=== PATIENT | female | born 1950 | race Native Hawaiian/Other Pacific Islander ===

== ENCOUNTER → 2016-11-19 | Outpatient (CLI) | payer MEDICARE, OTHER ==
--- NOTE | 2016-11-19 14:12 | MRI ---
EXAM DESCRIPTION: MR LUMBAR SPINE WITHOUT IV CONTRAST CLINICAL HISTORY: 66 y/o F, RADICULOPATHY COMPARISON: None TECHNIQUE: Multiplanar multi sequence images of the lumbar spine were obtained without gadolinium contrast. FINDINGS: There is slight grade 1 anterolisthesis at L3-4 period vertebral body height and alignment are otherwise well maintained period No bone marrow signal abnormalities are noted. The conus lies posterior to the L1 body, and the cauda equina is unremarkable. There is a lobulated infrarenal abdominal aortic aneurysm measuring up to 3.2 cm diameter period fatty atrophy of the paraspinal muscles is noted. There is disc desiccation throughout the lower thoracic and lumbar spine period At L1-2,there is bilateral facet joint degeneration and ligamentum flavum thickening with minimal concentric disc bulging. Findings result in mild to moderate bilateral neural foraminal stenosis and minimal central canal stenosis. An osteophyte arising from the anterior aspect of the right L1-2 facet results in mass effect on the thecal sac and possible abutment of the cauda equina period At L2-3, there is bilateral facet joint degeneration with ligamentum flavum thickening and slight concentric disc bulging resulting in mild to moderate bilateral neural foraminal and mild central canal stenosis. No definite nerve root abutment. At L3-4, there is bilateral facet joint degeneration with ligamentum flavum thickening period minimal, if any, concentric disc bulging, and findings result in mild to moderate central canal and mild bilateral neural foraminal stenosis. No definite nerve root abutment period At L4-5, there is concentric disc bulging, worse in the left foraminal and left lateral positions. Bilateral facet joint degeneration is noted, and findings result in advanced left-sided and moderate right-sided neural foraminal stenosis. Disc material approaches and likely abuts the exiting left L4 nerve root. At L5-S1, there is bilateral facet joint degeneration with mild right lateral disc bulging period no central canal or neural foraminal stenosis. IMPRESSION: Disc bulging, facet joint degeneration and ligamentum flavum thickening at multiple levels in the lumbar spine resulting in central canal central canal and neural foraminal stenosis as detailed above. Findings include possible nerve root abutment at L1-2 and L4-5. 3.2 cm infrarenal abdominal aortic aneurysm. AAA Size: Follow-upRecommendation1: 2.6-2.9 cm Every 5 years2 3.0-3.4 cm Every 3 years 3.5-3.9 cm Every 1 year 4.0-4.4 cm Every 1 year, vascularconsultation recommended 4.5-5.4 cm Every 6 months,vascular consultation recommended >5.5cm Vascularsurgery consultation recommended 1. J Vasc Surg. 2009Oct;50(4 Suppl):S2-49 2. For aortas with maximum diameter of 2.6-2.9 cmmeeting the criteria for AAA (>50% of proximal normal segment) Electronically signed by: Christiano Hummel DO 11/19/2016 14:10
== END ==
LOC: MRI 12:43
PROVIDERS: ATTEND Psychiatry & Neurology Neurology
DX: M51.16 Intervertebral disc disorders with radiculopathy, lumbar region (principal); G60.3 Idiopathic progressive neuropathy; I71.4 Abdominal aortic aneurysm, without rupture

== ENCOUNTER → 2017-11-23 | Outpatient (CLI) | payer MEDICARE, OTHER ==
--- NOTE | 2017-11-23 17:07 | CT ---
EXAM DESCRIPTION: Abdomen/Pelvis w/wo Contrast EXAM DESCRIPTION: Abdomen/Pelvis w/wo Contrast: Computed Tomography. CLINICAL HISTORY: HEMATURIA COMPARISON: CT scan of the chest with contrast on this visit. TECHNIQUE: Spiral-axial scans at 5.0 mm intervals through the abdomen and pelvis before and after standard dose nonionic IV contrast. No oral contrast. Coronal and sagittal 2.0 mm reconstructions. No adverse reactions. Total Exam DLP 2426.3 mGy - cm. This exam was performed according to our departmental CT dose-optimization program which includes automated exposure control, adjustment of the mA and/or kV according to patient size and/or use of iterative reconstruction technique; to reduce radiation dose to as low as reasonably achievable (ALARA). FINDINGS: Kidneys and Ureters: No radiodense stones bilaterally. No hydronephrosis or hydroureter. No perinephric fluid or periureteral edema. Pelvic Organs: Urinary bladder minimally distended with no radiodense stones. No diverticula. Uterus is not retroverted. Bilateral ovaries are visualized with no calcifications. No fluid in the cul-de-sac. Liver, Stomach, Spleen, Adrenal Glands: Diffuse low-density in the liver. Craniocaudal axis of the right lobe is 21.2 cm. No ascites. Normal enhancement. No intrahepatic duct dilation. Small fatty nodule on the inferior aspect of the left adrenal gland. Right adrenal gland spleen and stomach are unremarkable. Pancreas, Gallbladder, Ducts: Small folds seen in the anterior inferior gallbladder fundus. Pancreas and common bile duct unremarkable. Aorta: Minimal atherosclerotic calcification until the bifurcation. Dilation of distal 3.3 cm, with widest dimension 3.0 cm transverse and 2.9 cm craniocaudal. Small Bowel: Normal caliber. Proximal ileum enters a midline supraumbilical hernia (9 cm above the umbilicus) but there is no incarceration dilation or obstruction. No edema around the loop of bowel. Terminal Ileum/Cecum: Normal caliber. Small appendiceal stump. Normal fatty density. Colon: Contains fecal matter. A loop of transverse colon enters the previously described hernia and exits with no distention abnormal appearance. Minimal redundancy of the sigmoid colon with small diverticula but no complications. Mesentery: No edema free fluid or free air. Spine and Bony Pelvis: Spondylosis at L4-5 is moderate to significant bilateral foraminal narrowing. Mild disc desiccation spondylosis L5-S1 with bilateral foraminal narrowing. Also seen at L3-4. Spondylosis at multiple levels in the thoracic spine. No compression abnormalities. No bone destruction. Bilateral hypertrophy of the superior lateral acetabulum with narrowing of the bilateral hip joint spaces and over coverage of the femoral heads. Minimal gas density in the bilateral SI joint spaces. Abdominal Wall/Back Soft Tissues: Transverse neck of the midline hernia containing a loop of bowel loop of colon is 7 cm. Craniocaudal axis is 5.2 cm. No mesenteric or fatty edema in the hernia. Hernia just above the umbilicus measures 2.6 cm transverse and 2.7 cm craniocaudal. No bowel in the hernia; no mesenteric or fatty edema in the hernia. Bilateral fatty inguinal hernias, not containing bowel. IMPRESSION: 1. Bilateral kidneys ureters are unremarkable with no stones or obstruction. 2. Midline abdominal hernia 9 cm above the umbilicus containing a loop of ileum in the loop of transverse colon but no incarceration strangulation or obstruction. Second hernia abutting the superior umbilicus without bowel. No mesenteric edema. 3. Moderate hepatomegaly with steatosis. This can be result of obesity and a variety of metabolic and toxic conditions. Spondylosis in the lumbar and thoracic spine. Most severe at L4-5 level with significant bilateral foraminal compromise. 4. 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 Electronically signed by: Jose Gonzalez MD 11/23/2017 5:05 PM MEDICAL INSURANCE CLAIMS PROCESSOR
--- NOTE | 2017-11-23 20:25 | CT ---
EXAM DESCRIPTION: Chest w/Contrast : Computed Tomography. CLINICAL HISTORY: ABNORMAL CXR COMPARISON: CT abdomen and pelvis on the same visit. TECHNIQUE: Spiral-axial scans at 5.0 mm intervals through the lungs and thorax with IV contrast. 2.5 mm lung algorithm axial reconstructions. Coronal and sagittal 2.0 Mm reconstructions. No adverse reactions. Total Exam DLP: 834.32 mGy-cm. This exam was performed according to our departmental dose-optimization program which includes automated exposure control, adjustment of the mA and/or kV according to patient size and/or use of iterative reconstruction technique; to reduce radiation dose to as low as reasonably achievable (ALARA). FINDINGS: Soft tissue nodule in the inferior lateral lingula subpleural region with mean diameter 4.0 mm (series 3 image 62), abutting the inferior major fissure. Soft tissue nodule subpleural lateral left lower lobe. Mean diameter 5.5 mm (image 117). Minimal pleural thickening at the base but no effusion. No nodules in the right lung. Minimal scarring in the base. No infiltrate or mass bilaterally. Partial enhancement of the thyroid gland is unremarkable. No soft tissue masses or adenopathy in the mediastinum or hilar regions. No axillary adenopathy. Intimal wall thickening in the descending thoracic aorta. Multiple posterior ulcers on the lateral and posterior wall of the descending thoracic aorta, which extend into the regions of intimal wall thickening. Multiple levels of thoracic spondylosis with no compression or destructive lesions. Anterior cervical fusion construct anteriorly. IMPRESSION: 1. 2 nodules seen in the lingula and left lower lobe. The largest has a mean diameter of 5.5 mm. Consider follow-up chest CT scan in 12 month interval. Please see 2017 Fleischner Society recommendations for multiple solid lung nodule follow-up below.* 2. Multiple atherosclerotic luminal ulcers in the descending thoracic aorta with intimal wall thickening. Consider thoracic aorta CTA and cardiothoracic surgical consultation. *2017 Fleischner Society Recommendations for Multiple Solid Lung Nodules Follow-Up base on size (average of long- and short-axis diameters). Use most suspicious nodule for followup. Nodule Size <6 mm Low-Risk Patient: No routine follow-up Nodule Size <6 mm High-Risk Patient: Optional CT at 12 months Nodule Size 6-8 mm Low-Risk Patient: CT at 3-[address] at 18-24 months Nodule Size 6-8 mm High-Risk Patient: CT at 3-6 months then at 18-24 months Nodule Size (mm) >8 Low-Risk Patient: CT at 3-6 months, then consider CT at 18-24 months Nodule Size (mm) >8 High-Risk Patient: CT at 3-6 months, then at 18-24 months Electronically signed by: Jose Gonzalez MD 11/23/2017 8:24 PM [employer] -
== END | disposition home or self-care (01) ==
LOC: CT 10:00
PROVIDERS: ATTEND General Practice
DX: R31.9 Hematuria, unspecified (principal); R91.8 Other nonspecific abnormal finding of lung field

== ENCOUNTER → 2017-11-27 | Outpatient (CLI) | payer MEDICARE, OTHER ==
--- NOTE | 2017-11-27 15:05 | CT ---
EXAM DESCRIPTION: CTA Chest: Computed Tomography. CLINICAL HISTORY: I70.0, I71.2 COMPARISON: CT scan of the chest with contrast 11/23/2017. CTA of the abdomen and pelvis on this visit. TECHNIQUE: Spiral-axial scans at 2.5 mm intervals through the chest after bolus infusion of IV contrast. Coronal and sagittal 2.0 Mm reconstructions. Helical axial thin 0.6 mm scans utilizing lung algorithm. 0.6 mm MIP candy cane of the aorta volume rendering images. No adverse reactions. This exam was performed according to our departmental CT dose-optimization program which includes automated exposure control, adjustment of the mA and/or kV according to patient size and/or use of iterative reconstruction technique; to reduce radiation dose to as low as reasonably achievable (ALARA). FINDINGS: Minimal atherosclerosis and narrowing of the right innominate artery origin from the superior aortic arch. Similar finding in the origin of the left subclavian artery. Irregularity of the lumen with intimal wall thickening in the descending thoracic aorta. Posterior bulge of the aortic wall with small left lateral ulcer less than 5 mm diameter at the T6 level. Outer wall of the aorta measures 3.6 x 3.3 cm at this level. Ulcerative lesion approximately 11 mm wide and 8 mm deep in the posterior left lateral descending aorta at the level of the upper T8 vertebral body. Outer wall of the aorta measures 3.1 x 2.9 cm at this level. Larger ulcerative lesion measuring 11 mm at the base and 13 x 12 mm projects laterally to the left and slightly posteriorly at the T9 level. Outer wall of the aorta measures 4.0 x 3.4 cm at this level. Smaller ulcer posteriorly approximately 8 mm diameter at the T10 level. No dissections are noted. Stable appearance of the mediastinum hilum and pulmonary arteries. No change in appearance of the lung parenchyma. No pleural effusion or pneumothorax. IMPRESSION: 1. Diffuse intimal wall thickening of the descending thoracic aorta, with ectasia and aneurysm formation. Multiple small ulcerations in the lateral and posterior wall as described. Largest dimensions of the aorta are 4.0 x 3.4 cm at the T9 level. No dissection is present. No extravasation of contrast beyond the outer wall. No stenosis of the lumen. Electronically signed by: Jose Gonzalez MD 11/27/2017 3:04 PM TUNNEL ELASTIC OPERATOR LOCKSTITCH
--- NOTE | 2017-11-27 15:24 | CT ---
EXAM DESCRIPTION: CTA Abdomen CLINICAL HISTORY: I70.0, I71.2 COMPARISON: CTA of the chest and pelvis on the same visit. CT scan of the abdomen with IV contrast 11/23/2017. TECHNIQUE: CT angiography of the abdominal aorta is performed during rapid bolus administration of IV contrast media. Three-dimensional volume-rendering imaging is reviewed along with spiral 2.5 mm source images, and 2.0 coronal and sagittal reformats. This exam was performed according to our departmental CT dose-optimization program which includes automated exposure control, adjustment of the mA and/or kV according to patient size and/or use of iterative reconstruction technique; to reduce radiation dose to as low as reasonably achievable (ALARA). FINDINGS: Upper abdominal aorta: Minimal intimal wall thickening on the posterior aspect with minimal irregularity of the lumen and minimal atherosclerotic calcification. Small calcification and narrowing at the ostia of the celiac axis but the SMA ostia is unremarkable. No contrast extravasation. Mid-abdominal aorta: No significant atherosclerotic involvement or narrowing of the bilateral single renal arteries. Small posterior wall calcification. No contrast extravasation. Distal abdominal aorta: Minimal intimal wall thickening and atherosclerotic calcification abutting the ostia of the IDANIA. Between this level and the bifurcation, AP diameter of the aorta is 3.2 cm and transverse diameter 2.7 cm. No significant interval wall thickening. Just above the bifurcation, transverse diameter of aorta is 1.2 cm and luminal diameter 1 cm. Diffuse atherosclerotic calcification of the origins of the common iliac arteries more on the left than right. No contrast extravasation. Other: Again noted is midline abdominal hernia containing transverse colon superior to the umbilicus and a second midline smaller hernia at the umbilicus not containing bowel. A loop of small bowel contains a fatty density nodule at the level of the left renal hilum most likely a lipoma (series 2, image [id number]). Diverticulosis of the colon with no complications. Spondylosis L4-5 and significant foraminal narrowing. IMPRESSION: 1. Significant narrowing of the distal abdominal aortic lumen just above the bifurcation as described. 3.2 cm aneurysm at the level of the L3-4 disc space and anterior larger ventral wall hernia. No extravasation. Utilizing guidelines for abdominal aortic aneurysm imaging follow-up, [employer] Best Practice recommendations is follow-up imaging in 3 years. In light of findings in the thoracic aorta, vascular consult should still be considered. 2. Stable midline supraumbilical hernia containing transverse colon without evidence of complications. Probable lipoma in a loop of small bowel, seen also on previous study. Electronically signed by: Jose Gonzalez MD 11/27/2017 3:23 PM ELECTRICAL ENGINEERING TEACHER
--- NOTE | 2017-11-27 15:38 | CT ---
EXAM DESCRIPTION: CTA Pelvis CLINICAL HISTORY: I70.0, I71.2 COMPARISON: CTA of the chest and abdomen today. CT scan of the abdomen and pelvis with IV contrast 11/23/2017. TECHNIQUE: CT angiography of the abdominal aorta and pelvic arterial supply is performed during rapid bolus administration of IV contrast media. Three-dimensional volume-rendering imaging is reviewed along with 2.5 mm source images, and 2.0 mm coronal and sagittal reformats. This exam was performed according to our departmental CT dose-optimization program which includes automated exposure control, adjustment of the mA and/or kV according to patient size and/or use of iterative reconstruction technique; to reduce radiation dose to as low as reasonably achievable (ALARA). Note: stenoses are related to diameter utilizing NASCET criteria. FINDINGS: Common iliacs: Narrowing of the origin of the left common iliac artery with approximately 40% stenosis. Less than 20% stenosis of the origin of the right common iliac artery. Minimal calcification at the origin of the internal iliac arteries.. Internal iliacs: Minimal calcification bilaterally more on the left. Approximately 30% stenosis just distal to the origin of the left internal iliac artery. Right external iliac artery: No significant disease. Right SIGN PAINTER APPRENTICE: Approximately 25% stenosis by posterior medial calcified plaque. Normal bifurcation to form superficial and deep femoral arteries. Left external iliac artery: No significant disease. Left SIGN PAINTER APPRENTICE: Less than 20% stenosis by medial calcified plaque. Bifurcation is unremarkable. Other: Left fatty inguinal hernia not containing bowel. Degenerative changes in the pubic symphysis. No fluid in the pelvic cul-de-sac. Diverticula of the distal colon without complications. L4-5 and L5-S1 spondylosis. Bilateral hip arthrosis. IMPRESSION: 1. Proximal 40% stenosis of the origin of the left common iliac artery. Approximately 30% stenosis of the left proximal internal iliac artery just distal to the origin. No aneurysms. 2. Approximately 25% stenosis proximal right common femoral artery and less than 20% stenosis proximal left common femoral artery. Bilateral bifurcations are unremarkable. Electronically signed by: Jose Gonzalez MD 11/27/2017 3:37 PM OCC MED PHYSICIAN
== END | disposition home or self-care (01) ==
LOC: CT 09:30
PROVIDERS: ATTEND General Practice
DX: I70.0 Atherosclerosis of aorta (principal); I71.2 Thoracic aortic aneurysm, without rupture

== ENCOUNTER → 2018-10-14 | Outpatient (CLI) | payer MEDICARE, OTHER ==
--- NOTE | 2018-10-15 13:55 | CT ---
EXAM DESCRIPTION: Lumbar Spine CLINICAL HISTORY: 68 years, Female, M54.16 COMPARISON: None TECHNIQUE: Lumbar CT with thin-section axial imaging with reconstructed MPR images reviewed as well. This exam was performed according to our departmental dose-optimization program, which includes automated exposure control, adjustment of the mA and/or kV according to patient size and/or use of iterative reconstruction technique. FINDINGS: Normal alignment of the lumbar spine is present with a tiny amount two or 3 mm of anterolisthesis of L3 on L4 with marked multilevel bilateral facet arthropathy at this level as well as L4-5 and L5-S1 and to a lesser extent the upper lumbar spine at L1-2 and L2-3. Vacuum phenomenon and degenerative disc narrowing is present at T11-12 as well as L4-5 and L5-S1. Vertebral height is maintained. A small infrarenal aortic aneurysm 3.7 cm in AP diameter is present follow-up examination in 12 months is recommended. The remainder of the retroperitoneum and paraspinous region is normal. At T11-12 ligamentum flavum hypertrophy and calcification particularly left sided compromises the left posterior lateral aspect of the thecal sac and spinal canal with borderline AP diameter stenosis present. The T12-L1 level demonstrates mild facet arthropathy with more significant facet arthropathy noted at L1-2. Borderline stenosis with marked right-sided hypertrophic facet changes and compromise of the right lateral recess is noted. At L2-3, marked facet hypertrophy left greater than right and multifactoral moderate spinal stenosis is present with mild annular bulge. At L3-4, annular bulge and anterolisthesis with severe bilateral facet arthropathy creates moderately severe central stenosis circumferential at L4-5, patient appears to have undergone prior laminotomy with bilateral L4 foraminal stenosis but adequate spinal canal at the level of the degenerative disc. At L5-S1, patient appears to have undergone prior laminotomy with decompression of the thecal sac is moderately degenerative disc space and severe facet arthropathy right worse than left with mildly narrowed left L5 neural foramen and more significantly narrowed right L5 neural foramen. IMPRESSION: 1. Essentially normal alignment of the spine with minimal approximate 2 mm of degenerative anterolisthesis L3-4 with severe facet arthropathy and multifactorial moderately severe spinal stenosis. 2. Probable prior laminotomies at the L4-5 and L5-S1 level with adequate spinal canal but severe bilateral L4 foraminal narrowing from facet disease and moderate predominant right-sided changes at L5 from L5-S1 facet disease 3. Hypertrophic facet arthropathy L2-3 with moderate multifactoral stenosis with annular bulge. 4. Hypertrophic predominant right facet arthropathy L1-2 with encroachment on the right lateral aspect of the spinal canal and thecal sac with borderline stenosis. Similar changes from hypertrophic ligamentum flavum and facet disease on the left at T11-12 with borderline stenosis predominantly on the left side at this Electronically signed by: Devon Acevedo MD 10/15/2018 1:53 PM [facility]
--- NOTE | 2018-10-15 14:01 | CT ---
EXAM DESCRIPTION: Cervical Spine CLINICAL HISTORY: M54.12 COMPARISON: None Available. TECHNIQUE: Cervical CT is performed with thin-section axial imaging. MPRs are created and reviewed as well. This exam was performed according to our departmental dose-optimization program, which includes automated exposure control, adjustment of the mA and/or kV according to patient size and/or use of iterative reconstruction technique. FINDINGS: Anterior interbody fusion and graft material at the C6-7 level with anterior plating with mild posterior bony ridging at the fused disc space is noted at C6-7. This finding appears mature with solid bony fusion of the anterior interspace. Advanced degenerative changes anteriorly at the C1-2 articulation is present. Multilevel bilateral moderate facet arthropathy is present with changes on the right most significant at C4-5 and C7-T1 and on the left most significant at C3-4 and C4-5. The ring of C1 and the ring of C2 and the articulation of C1-2 and the craniocervical junction appears normal. At C3-4 normal alignment is present with adequate canal and right neural foramen with bony encroachment upon the left neural foramen from hypertrophic facet disease mild central disc prominence is present. At C4-5 mild annular prominence is present and there is mild bilateral foraminal encroachment from facet disease greater on the right. At C5-6 spinal canal is normal with mild annular bulge and adequate right foramen and moderately narrowed left foramen from facet disease and uncinate process hypertrophy. The fused C6-7 level demonstrates mild posterior bony ridging in the midline at the level of the disc with adequate canal. Very mildly narrowed right neural foramen and adequate left neural foramen is noted. The C7-T1 disc level is mildly narrowed on a degenerative basis with adequate canal and left neural foramen with moderately narrowed right neural foramen from advanced right-sided facet disease. IMPRESSION: 1. Prior ACDF mature fusion at the C6-7 level with mild posterior bony ridging in the midline along the anterior thecal sac. 2. Adequate spinal canal at the cervicothoracic junction and above C6-7 level that is fused with multilevel foraminal narrowing probably on the basis of facet disease as described above. 3. Moderate degenerative changes anteriorly at the C1-2 articulation without malalignment. Electronically signed by: Devon Acevedo MD 10/15/2018 2:00 PM PROJECT CONTROL ANALYST
== END ==
LOC: CT 13:22
PROVIDERS: ATTEND Psychiatry & Neurology Neurology
DX: M54.12 Radiculopathy, cervical region (principal); M51.16 Intervertebral disc disorders with radiculopathy, lumbar region; M48.061 Spinal stenosis, lumbar region without neurogenic claudication; Z98.1 Arthrodesis status

== ENCOUNTER → 2020-05-25 | Outpatient (CLI) | payer MEDICARE, OTHER ==
--- NOTE | 2020-05-25 15:08 | CT ---
EXAM DESCRIPTION: Head CLINICAL HISTORY: 69 years Female, HEAD INJURY COMPARISON: None. TECHNIQUE: Axial images obtained from the skull base to the vertex without intravenous contrast with images. Coronal and sagittal reformations provided. This exam was performed according to our departmental dose-optimization program, which includes automated exposure control, adjustment of the mA and/or kV according to patient size and/or use of iterative reconstruction technique. Time Last Seen Well (If known) for Code Stroke: n/a FINDINGS: Brain Parenchyma, ventricles, meninges, and extra-axial spaces: Mild generalized cerebral atrophy. Mild Normal attenuation of brain parenchyma. No acute intracranial hemorrhage. No abnormal extra-axial fluid collection. Dense calcification along the anterior cerebral falx. Vascular: Atherosclerosis is within the carotid siphons. Calvarium, paranasal sinuses, mastoids, and orbits: Calvarium intact. Visualized paranasal sinuses and mastoid air cells clear. Orbits unremarkable. IMPRESSION: 1. No acute intracranial abnormality. 2. Senescent changes. Electronically signed by: Zane Chawla MD 05/25/2020 3:07 PM CDT
== END ==
LOC: CT 13:32
PROVIDERS: ATTEND Nurse Practitioner
DX: R55 Syncope and collapse (principal); S09.90XA Unspecified injury of head, initial encounter; G31.1 Senile degeneration of brain, not elsewhere classified